=== PATIENT | male | born 1990 | race Caucasian/White ===

== ENCOUNTER 2018-04-23 09:14 | Emergency (ER) | payer SELFPAY ==
--- NOTE | 2018-04-23 10:34 | EDPHY ---
General Time Seen by Provider: 04/23/18 10:27 Narrative: CHIEF COMPLAINT: Suicidal, depressed HISTORY OF PRESENT ILLNESS: Patient presents with complaints of feeling depressed and suicidal. He states that he has felt very suicidal over the past week on a daily basis. He has a very flat affect and describes a history of depression with previous suicide attempts. He states previous attempt of hanging at age 17, attempt by overdose at age 21. He has been seen by Psychiatry but not in the past 2 months. Two months ago he chose to stop is Cymbalta because he felt it was not helping him. He will not describe his plan to me but states that he does have intent to harm himself. No other associated complaints or modifying factors. PSYCHIATRIC DIAGNOSES: Depression PRIOR PSYCHIATRIC EVALUATIONS: In previous states M1/DETAINER: Detainer by me at 10:35 a.m. REVIEW OF SYSTEMS: Ten systems reviewed and are negative unless otherwise noted in the HPI EXAMINATION General Appearance: Alert, no distress. Conversing in full sentences. Head: normocephalic, atraumatic Eyes: Pupils equal and round, no conjunctival pallor or injection ENT, Mouth: Mucous membranes moist Neck: Normal inspection, supple, non-tender Respiratory: Lungs are clear to auscultation Cardiovascular: Regular rate and rhythm Gastrointestinal: Abdomen is soft and nontender Back: non-tender, no bony abnormalities Neurological: A&O, nonfocal, normal gait Skin: Warm and dry, no rash. Tattoo of a heart on his chest. Extremities: Nontender, no pedal edema Psychiatric: Depressed mood and flat affect. Admits to suicidal ideation daily. Admits to previous suicide attempt 6 years ago and 7 years ago. DIFFERENTIAL DIAGNOSES: Including but not limited to depression, anxiety, suicidal ideation, dysthymia MDM: 10:20 a.m. Increasing depression with suicidal ideation. The patient is very anergic with flat affect and does admit to feeling suicidal daily. He does not express the plan at this time. He does admit to previous attempts at suicide by pill ingestion and hanging. He has not seen his psychiatrist and nearly 2 months. He stopped his Cymbalta nearly 2 months ago. I placed him on a detained or and we will proceed with medical clearance for evaluation. He is thus far, cooperative. 11:05 a.m. Patient is medically cleared for evaluation at this time. 12:00 p.m. Patient resting comfortably pending his evaluation. 2:20 p.m. Patient has been evaluated by Alba with [facility]. She has discussed the case with Dr. Perez, who recommends the patient be discharged home. She reports that she has discussed his previous alcohol dependency, for which she has been going to rehabilitation for. She reports he is no longer suicidal. She has provided multiple outpatient resources for him. He has contract for safety and is comfortable with discharge home. I do feel this is reasonable for the patient. He will be discharged in stable conditions with outpatient resources and follow up with [facility]. SUPERVISION: This patient was independently evaluated without direct involvement of or examination by the attending physician. - History Smoking Status: Current every day smoker - Objective Vital Signs: Initial Vital Signs Temperature (C) 98.2 F 04/23/18 09:19 Heart Rate 89 04/23/18 09:19 Respiratory Rate 18 04/23/18 09:19 Blood Pressure 133/61 H 04/23/18 09:19 O2 Sat (%) 99 04/23/18 09:19 O2 Delivery Mode Room Air Allergies/Adverse Reactions: No Known Allergies Allergy (Verified 04/23/18 10:22) Home Medications: Medication Instructions Recorded Cymbalta 04/23/18 Gabapentin 04/23/18 Ibuprofen 04/23/18 oxyCODONE CR 04/23/18 traMADol 04/23/18 Laboratory Results: Laboratory Results 04/23/18 10:00 04/23/18 10:00 04/23/18 04/23/18 04/23/18 10:00 10:00 09:45 WBC 6.53 10^3/uL 10^3/uL (3.80-9.50) RBC 5.16 10^6/uL 10^6/uL (4.40-6.38) Hgb 15.1 g/dL g/dL (13.7-17.5) Hct 44.2 % % (40.0-51.0) MCV 85.7 fL fL (81.5-99.8) MCH 29.3 pg pg (27.9-34.1) MCHC 34.2 g/dL g/dL (32.4-36.7) RDW 12.2 % % (11.5-15.2) Plt Count 248 10^3/uL 10^3/uL (150-400) MPV 9.9 fL fL (8.7-11.7) Neut % (Auto) 49.9 % % (39.3-74.2) Lymph % (Auto) 37.7 % % (15.0-45.0) [place] % (Auto) 7.7 % % (4.5-13.0) Eos % (Auto) 3.8 % % (0.6-7.6) Baso % (Auto) 0.6 % % (0.3-1.7) Nucleat RBC Rel Count 0.0 % % (0.0-0.2) Absolute Neuts (auto) 3.26 10^3/uL 10^3/uL (1.70-6.50) Absolute Lymphs (auto) 2.46 10^3/uL 10^3/uL (1.00-3.00) Absolute Monos (auto) 0.50 10^3/uL 10^3/uL (0.30-0.80) Absolute Eos (auto) 0.25 10^3/uL 10^3/uL (0.03-0.40) Absolute Basos (auto) 0.04 10^3/uL 10^3/uL (0.02-0.10) Absolute Nucleated RBC 0.00 10^3/uL 10^3/uL (0-0.01) Immature Gran % 0.3 % % (0.0-1.1) Immature Gran # 0.02 10^3/uL 10^3/uL (0.00-0.10) Sodium 140 mEq/L mEq/L (135-145) Potassium 4.4 mEq/L mEq/L (3.3-5.0) Chloride 104 mEq/L mEq/L (97-110) Carbon Dioxide 29 mEq/l mEq/l (22-31) Anion Gap 7 mEq/L L mEq/L (8-16) BUN 17 mg/dL mg/dL (7-23) Creatinine 0.8 mg/dL mg/dL (0.7-1.3) Estimated GFR > 60 Glucose 112 mg/dL H mg/dL (70-100) Calcium 9.4 mg/dL mg/dL (8.5-10.4) Salicylates < 1.0 mg/dL L mg/dL (2.0-20.0) Urine Opiates Screen NEGATIVE (NEGATIVE) Acetaminophen < 10 mcg/mL L mcg/mL (10-30) Urine Barbiturates NEGATIVE (NEGATIVE) Ur Phencyclidine Scrn NEGATIVE (NEGATIVE) Ur Amphetamine Screen NEGATIVE (NEGATIVE) U Benzodiazepines Scrn NEGATIVE (NEGATIVE) Urine Cocaine Screen NEGATIVE (NEGATIVE) U Marijuana (THC) Screen NON-NEGATIVE H (NEGATIVE) Ethyl Alcohol < 10 mg/dL mg/dL (0-10) Departure - Departure Disposition: Home, Routine, Self-Care Clinical Impression: Severe major depression Condition: Good Instructions: Depression (ED) Additional Instructions: 1. Contact [facility] for outpatient care 2. Contact Dr. King for outpatient care 3. Contact [place] to follow up with her established physician 4. Contact [facility] or return here for any thoughts of self-harm or harm towards others Referrals: [facility] ,. [Edm Groups for Call Sched] - As per Instructions Katie King MD [Medical Doctor] - As per Instructions [facility],. [Clinic] - As per Instructions
[2018-04-23 10:39] LABS: PLATELET COUNT 248 10^3/uL (150-400)
[2018-04-23 14:41] VITALS: BP 125/77
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
--- NOTE | 2018-04-23 15:12 | ASMTTCLDSP ---
[facility] Discharge Disposition Disposition: Answers: Discharge If Answers: Yes DISCHARGED: Patient/family given suicide hotline info & SAMHSA brochure? Disposition Notes: Notes: Pt was given resources to P adn encouraged to follow up. Pt was also given list of AA meetings in [facility] and pt's request. Discharge Concerns/Recommendations: Notes: In consultation with [facility] ED physician, Fer Pisano MD, and on-call psychiatrist, Joshua Weir MD, both concurred that pt does not appear to meet 27-65 criteria requiring psychiatric hospitalization as pt does not appear to be an imminent risk of harm to self/others/gravely disabled due to a mental illness condition. Date Signed: 04/23/2018 03:11 PM Electronically Signed By:Alba Bernardo
== END 2018-04-23 14:53 | disposition home or self-care (01) ==
DX: R45.851 Suicidal ideations (principal); F34.1 Dysthymic disorder; F17.200 Nicotine dependence, unspecified, uncomplicated
CPT/HCPCS: 80305; G0480

== ENCOUNTER 2018-06-06 11:05 | Emergency (ER) | payer MEDICAID, OTHER ==
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
[2018-06-06 12:40] VITALS: BP 131/72
== END 2018-06-06 12:32 | disposition home or self-care (01) ==
DX: S49.91XA Unspecified injury of right shoulder and upper arm, initial encounter (principal); V18.0XXA Pedal cycle driver injured in noncollision transport accident in nontraffic accident, initial encounter; Y93.55 Activity, bike riding; Y92.9 Unspecified place or not applicable; Y99.9 Unspecified external cause status
CPT/HCPCS: A4565

== ENCOUNTER 2018-06-18 12:54 | Emergency (ER) | payer MEDICAID, OTHER ==
--- NOTE | 2018-06-18 12:57 | EDPHY ---
H & P Time Seen by Provider: 06/18/18 12:55 HPI/ROS: CHIEF COMPLAINT: Chronic cervical pain HISTORY OF PRESENT ILLNESS: The patient presents to the ED with complaints of chronic cervical and thoracic pain following a work related accident which reportedly occurred in September. The patient has been evaluated by Neurosurgery. He reportedly had an unremarkable cervical spine MRI. The patient did have a mechanical fall several weeks ago which resulted in a right shoulder strain. The patient denies any bowel or bladder dysfunction. He denies any additional acute complaints. He is frustrated as he does not yet have a working diagnosis. Patient is requesting a new referral for a specialist physicians. REVIEW OF SYSTEMS: A comprehensive 10 point review of systems is otherwise negative aside from elements mentioned in the history of present illness. Source: Patient Exam Limitations: No limitations - Medical/Surgical History Hx Asthma: No Hx Chronic Respiratory Disease: No Hx Diabetes: No Hx Cardiac Disease: No Hx Renal Disease: No Hx Cirrhosis: No Hx Alcoholism: No Hx HIV/AIDS: No Hx Splenectomy or Spleen Trauma: No Other PMH: T 8 compression fx - Social History Smoking Status: Current every day smoker - Physical Exam Exam: General Appearance: Alert, no distress Eyes: Pupils equal and round no pallor or injection ENT, Mouth: Mucous membranes moist Respiratory: No respiratory distress Neurological: Grossly normal motor exam Skin: Warm and dry, no rashes Musculoskeletal: Tenderness to palpation in the right trapezius muscle Extremities: symmetrical, full range of motion Constitutional: Initial Vital Signs Temperature (C) 36.7 C 06/18/18 12:58 Heart Rate 62 06/18/18 12:58 Respiratory Rate 18 06/18/18 12:58 Blood Pressure 159/66 H 06/18/18 12:58 O2 Sat (%) 96 06/18/18 12:58 O2 Delivery Mode Room Air Allergies/Adverse Reactions: No Known Allergies Allergy (Verified 06/18/18 12:56) Home Medications: Medication Instructions Recorded Gabapentin 04/23/18 Ibuprofen 04/23/18 oxyCODONE CR 04/23/18 traMADol 04/23/18 DULoxetine 06/18/18 Medical Decision Making ED Course/Re-evaluation: I reviewed the patient's past medical records including an MRI obtained in March of this year which demonstrated: FINDINGS: Alignment: Vertebral body height and alignment are maintained. Marrow signal: No marrow signal abnormality. Spinal cord: No cord signal abnormality. Intervertebral discs: Normal disc height and signal. Findings by level as follows: C2-C3: No spinal stenosis or foraminal impingement. C3-C4: No spinal stenosis or foraminal impingement. C4-C5: No spinal stenosis or foraminal impingement. C5-C6: No spinal stenosis or foraminal impingement. C6-C7: No spinal stenosis or foraminal impingement. C7-T1: No spinal stenosis or foraminal impingement. The patient has chronic neck pain. He has been referred to a new specialist physicians per his request. Departure - Departure Disposition: Home, Routine, Self-Care Clinical Impression: Chronic neck pain Condition: Good Instructions: Chronic Neck Pain (DC) Additional Instructions: 1. You have been given the contact information for [facility] if you desire a 2nd opinion regarding your chronic neck pain. 2. Take Ibuprofen or Motrin 600 mg by mouth three times a day. Referrals: Sanjay Frank MD [Medical Doctor] - As per Instructions
[2018-06-18 13:00] VITALS: BP 159/66
--- NOTE | 2018-06-21 11:27 | ASMTCMCOM ---
CM Note CM Note Notes: Late Entry from 06/18/18: Pt presented to the ED for chronic cervical and thoracic spine pain. Requested to speak to patient re:referral to [facility]. This CM faxed over ED Report and referral to Dr Sanjay Frank at [facility]. This CM spoke the pt extensively in the ED waiting area. 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 Pt states he has recently closed the WC case due to frustration and not receiving the evaluation or care he believes he needs. Pt states he has been seen by various providers throughout the past 9 months. Pt continues to have debilitating back and neck pain. 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 We discussed pt establishing a PCP and also seeking a mental health provider for his depression r/t his chronic pain, frustration w/the medical aspect and litigation of his WC case, loss of previous employment, etc. We discussed pt being a good candidate for [facility]. Pt gave permission for this CM to reach out to MAYNOR Burroughs Automatic Presser at the [facility] and request she reach out to patient to schedule a new pt appt. This CM spoke w/Heike and she says she will reach out to the pt. Pt provided information on [facility] and [facility]. Pt states he has no family or close friends in the area. Pt states he doesn't keep in contact with his parents but talks to his older sister in [place] sometimes. Pt very pleasant, appreciative and agreeable to followup plan. Date Signed: 06/21/2018 11:26 AM Electronically Signed By:Sarah Giron RN
== END 2018-06-18 13:45 | disposition home or self-care (01) ==
DX: M54.2 Cervicalgia (principal); G89.29 Other chronic pain

== ENCOUNTER 2018-08-05 09:39 | Emergency (ER) | payer MEDICAID ==
[2018-08-05 09:48] VITALS: BP 154/92
[2018-08-05] MEDS ORDERED: ASPIRIN 81 MG CHEWABLE TAB PO ONE (09:50)
--- NOTE | 2018-08-05 15:37 | CPEKG ---
Test Reason : OPEN Blood Pressure : / mmHG Vent. Rate : 067 BPM Atrial Rate : 068 BPM P-R Int : 161 ms QRS Dur : 096 ms QT Int : 369 ms P-R-T Axes : 061 069 050 degrees QTc Int : [address] elev, probable normal early repol pattern Confirmed by Mariel Zamudio ([id number]) on 08/05/2018 3:37:14 PM Referred By: Confirmed By:Mariel Zamudio
== END 2018-08-05 10:48 | disposition left against medical advice (07) ==
LOC: EDUNIT#
DX: Z53.21 Procedure and treatment not carried out due to patient leaving prior to being seen by health care provider (principal)
CPT/HCPCS: 84484-ER

== ENCOUNTER 2018-09-18 14:30 | Emergency (ER) | payer MEDICAID ==
--- NOTE | 2018-09-18 16:23 | EDPHY ---
General Time Seen by Provider: 09/18/18 15:57 Narrative: CLINICAL IMPRESSION: Chronic back pain ASSESSMENT/PLAN: 27-year-old male with chronic thoracic back pain following a workmen Comp injury in September of 2017. Since that time patient has been on innumerable pain medication, has followed with pain management, has seen Neurosurgery, has had MRIs, and has an upcoming appointment with Natalie Mancilla in 2 days. Patient reports he is currently taking tramadol, Flexeril, and ibuprofen. He states gabapentin and Lyrica "do nothing". Months ago he was on oxycodone and OxyContin but has been off of these for at least 6 months and is not contracted with pain management currently. He denies recent trauma. He is able to move on and off the bed without obvious discomfort. No IV drug abuse. No reported fever. Low clinical suspicion for cauda equina, epidural abscess, meningitis, or acute infectious etiology, or acute neurovascular injury. Patient was given a small amount of Valium to try for muscle relaxant and advised to keep his appointment with Natalie Mancilla on Sunday. Warning signs return to ED sooner alignment discharge. DIFFERENTIAL DX: Differential diagnosis includes but not limited to muscular pain, herniated disc , spine fracture, cauda equina, epidural abscess, infectious causes, intra- abdominal causes, pyelonephritis and urinary tract infection CHIEF COMPLAINT: Chronic back pain HPI: 27-year-old male with history of chronic back and neck pain presents to the emergency department with complaints of back and neck pain. No recent trauma or injury. Patient has had innumerable specialty workups including MRI scans x- rays, has worked with pain management in the past but is not currently contract with pain management, and apparently has tried a multitude of different medications. He is currently taking ibuprofen, tramadol, Flexeril and states "they do nothing". He is currently on Medicaid and states they do not pay for medical massage. He denies fever, chills, chest pain, shortness of breath, IV drug abuse, numbness to the arms or chest wall, difficulty walking, bowel or bladder incontinence, and saddle anesthesia. PAST MEDICAL HISTORY: Chronic back pain See triage summary and nurse notes for addition applicable history Pertinent Past Surgical History: Appendectomy Family History: Noncontributory Social History: Reports he is not abuse IV drugs for 5 years REVIEW OF SYSTEMS: A full 10 point review of systems was negative except for those mentioned in HPI. PHYSICAL EXAM: General Appearance: Alert, oriented, appropriate, cooperative, NAD, well hydrated, non-toxic appearing, VSS, laying comfortably on the bed, able to sit up and stand without discomfort, ambulates without assistance. no hypoxia. Neck: Supple, nontender, no lymphadenopathy, no midline pain, FROM, no meningismus. Respiratory: There are no retractions, lungs are clear to auscultation. No chest wall or rib pain Cardiac: Regular rate and rhythm, no murmurs or gallops. Musculoskeletal: No reproducible midline or paraspinal thoracic back pain. Patient does not appear uncomfortable with palpation. Gastrointestinal: Abdomen is soft, nontender, bowel sounds normal, no masses/ hernia, no rigidity, guarding or focal peritoneal findings. Skin: Warm, dry, no rashes, no nodules on palpation. MEDICAL DECISION MAKING: Patient was seen independently. Secondary supervising physician at time of evaluation was: Dr Tiwari . Diagnosis: Acute on chronic back pain. New, requires workup Summary: See Assessment and Plan for summary of ED visit Patient Progress: Stable for discharge. - History Smoking Status: Current every day smoker - Objective Vital Signs: Initial Vital Signs Temperature (C) 36.8 C 09/18/18 14:40 Heart Rate 94 09/18/18 14:40 Respiratory Rate 16 09/18/18 14:40 Blood Pressure 139/79 H 09/18/18 14:40 O2 Sat (%) 96 09/18/18 14:40 O2 Delivery Mode Room Air Allergies/Adverse Reactions: No Known Allergies Allergy (Verified 09/18/18 14:40) Home Medications: Medication Instructions Recorded Gabapentin 04/23/18 Ibuprofen 04/23/18 oxyCODONE CR 04/23/18 traMADol 04/23/18 DULoxetine 06/18/18 Spironolactone 08/05/18 Diazepam [Valium] 5 mg PO Q8PRN PRN #10 tab 09/18/18 Departure - Departure Disposition: Home, Routine, Self-Care Clinical Impression: Chronic back pain Qualifiers: Back pain location: thoracic back pain Back pain laterality: bilateral Qualified Code(s): M54.6 - Pain in thoracic spine Condition: Fair Instructions: Chronic Back Pain (DC) Additional Instructions: DISCHARGE INSTRUCTIONS FROM YOUR DOCTOR Thank you for visiting our emergency department today. You were treated by a physician automotive parts counter assistant today and your case was reviewed with our ED Attending physician. Please keep in mind that discharge from the emergency department does not mean that there is nothing wrong - it simply means that we have not identified an emergency condition that requires further evaluation or treatment in the hospital. You should always plan to follow up with primary care for re- evaluation of your condition in the next 2-3 days. If you have been referred to a specialist, please call as soon as possible (today or tomorrow) to schedule your follow up appointment at the appropriate time. PLEASE KEEP YOUR APPOINTMENT SUNDAY WITH [facility]. WE DO NOT ROUTINELY PRESCRIBE NARCOTICS FOR CHRONIC PAIN. A SMALL AMOUNT OF VALIUM WAS GIVEN TO TRY FOR MUSCLE SPASMS. CONTINUE HER HOME PAIN MEDICATIONS. CONSIDER RE- ESTABLISHING CARE WITH A DIVORCE ATTORNEY. RETURN TO THE ER FOR NEW OR WORSENING PAIN, FEVER, OR ANY OTHER CONCERN. People present with illnesses and injuries in different ways, and it is always possible that we have missed something. You may always return for re-evaluation if symptoms worsen or if they are not improving or if you develop new/different symptoms. Again, thank you for choosing our emergency department. We hope that you feel better. Referrals: NONE *PRIMARY CARE P,. [Primary Care Provider] - As per Instructions Doron Newsome MD [Medical Doctor] - 1-2 days without fail Prescriptions: Diazepam [Valium] 5 mg PO Q8PRN PRN #10 tab PRN Reason: Pain, Breakthrough
[2018-09-18 16:39] VITALS: BP 133/80
== END 2018-09-18 16:41 | disposition home or self-care (01) ==
DX: M54.6 Pain in thoracic spine (principal); G89.29 Other chronic pain; Z87.828 Personal history of other (healed) physical injury and trauma

== ENCOUNTER 2018-10-27 15:51 | Emergency (ER) | payer MEDICAID ==
[2018-10-27] MEDS ORDERED: IBUPROFEN 600 MG TAB PO ONE (16:36)
--- NOTE | 2018-10-27 16:36 | EDPHY ---
H & P Time Seen by Provider: 10/27/18 16:07 HPI/ROS: HPI Right foot injury. 28-year-old male by private vehicle. This patient was skateboarding. He has a history of a prior right foot mid metatarsal fracture when he was 16. He reports that while skateboarding and doing a maneuver he struck his right foot on a cement wall. He presents the emergency department with complaint of mid dorsal right foot pain. No other injury or complaint. He denies any ankle pain. He did not strike his head. No other extremity pain. ROS: Constitutional: No fever, no chills. No weakness. Musculoskeletal: No back pain. No neck pain. As above. Skin: No rashes. No lacerations or abrasions. Neurological: No headache. No focal weakness or altered sensation. Past medical history: As above. Past history of heroin and cocaine abuse. Multiple orthopedic surgeries. GERD. Appendectomy. Social history: Here by himself. Nonsmoker. Denies alcohol. As above. Physical Exam: General Appearance: Alert, no distress. This patient is responding to questions appropriately and in full sentences. This patient appears well- hydrated and well-nourished. Eyes: Pupils equal and round no pallor or injection. No lid edema, erythema or injection. Right foot and ankle exam: Significant for tenderness on palpation did metatarsals 2 and 3. No bony step-off or deformity noted on palpation of this area. The bony aspects of the ankle are nontender on palpation. There is no significant swelling, edema, erythema, warmth or ecchymosis noted on gross inspection of his foot and ankle. No gross deformity appreciated. The proximal fibula is nontender on palpation. The right lower extremity right foot are neurovascularly intact. Neurological: Motor sensory function is grossly intact. Cranial nerves are normal. Gait is normal. Skin: Warm and dry, no rashes. Musculoskeletal: Neck is supple and nontender. Extremities are symmetrical. All joints range without pain or impingement. Psychiatric: No agitation. No depression. Database: EKG: Imaging: Right foot x-ray series: Negative for fracture, subluxation, dislocation or other abnormality. Interpreted by me. Procedures: Emergency department course: Triage vital signs reviewed and are normal. The patient will be given 600 mg of ibuprofen. X-rays to be obtained as above. 5:00 p.m., the patient was re-evaluated, results of his x-ray was discussed with him. No bony abnormality. The patient will be fitted with a rigid postop shoe and given crutches as needed. I advised weight-bearing as tolerated and ibuprofen. I advised to follow up with his primary care physician or podiatry for re-evaluation in 2-3 days. He feels comfortable with this plan. Return to emergency department precautions were reviewed with him. All of his questions were answered. He was discharged from the emergency department in good condition. Differential Diagnosis: The differential diagnosis on this patient includes but is not limited to right foot sprain. Fracture, subluxation, dislocation involving the right foot unlikely. Other significant traumatic injury unlikely. This represents a partial list of diagnoses considered. These considerations are based on history , physical exam, past history, reassessment and diagnostic testing. Smoking Status: Current every day smoker Constitutional: Initial Vital Signs Temperature (C) 36.3 C 10/27/18 16:02 Heart Rate 83 10/27/18 16:02 Respiratory Rate 17 10/27/18 16:02 Blood Pressure 120/76 10/27/18 16:02 O2 Sat (%) 91 L 10/27/18 16:02 O2 Delivery Mode Room Air Allergies/Adverse Reactions: No Known Allergies Allergy (Verified 10/27/18 16:01) Home Medications: Medication Instructions Recorded Gabapentin 04/23/18 Ibuprofen 04/23/18 oxyCODONE CR 04/23/18 traMADol 04/23/18 DULoxetine 06/18/18 Spironolactone 08/05/18 Diazepam [Valium] 5 mg PO Q8PRN PRN #10 tab 09/18/18 Medical Decision Making - Diagnostics Imaging Results: Imaging Impressions Foot X-Ray 10/27/18 16:27 Impression: Negative right foot radiographs. Departure - Departure Disposition: Home, Routine, Self-Care Clinical Impression: Right foot injury Condition: Good Instructions: Foot Sprain (ED) Additional Instructions: Read and follow provided instructions. Follow-up with your primary care physician or podiatry in 2-3 days for re- evaluation as needed. Ibuprofen dosin mg every 6 hours with meals for the next 3 days only. Take only as needed for pain. Weightbear on your right foot as tolerated. Return to the emergency department for worsening pain, swelling, discoloration, loss of sensation or other serious concerns. Referrals: Mary Salcedo PA [Primary Care Provider] - As per Instructions Maximo Fang DPM [Doctor of Podiatric Medicine] - As per Instructions
[2018-10-27 17:27] VITALS: BP 120/71
== END 2018-10-27 17:25 | disposition home or self-care (01) ==
DX: S92.901A Unspecified fracture of right foot, initial encounter for closed fracture (principal); W22.8XXA Striking against or struck by other objects, initial encounter; Y93.51 Activity, roller skating (inline) and skateboarding; Y92.9 Unspecified place or not applicable; Y99.9 Unspecified external cause status

== ENCOUNTER 2018-12-04 10:51 | Emergency (ER) | payer MEDICAID ==
[2018-12-04 11:06] VITALS: BP 106/77
--- NOTE | 2018-12-04 11:24 | EDPHY ---
H & P Time Seen by Provider: 12/04/18 11:17 HPI/ROS: CHIEF COMPLAINT: Back pain HISTORY OF PRESENT ILLNESS: Patient is a 28-year-old male with ongoing back pain to his right posterior shoulder. Patient states he injured himself approximately a year ago while removing a [place] in December. Patient has been seen by his primary care physician for this in the past. He is currently not taking any narcotic pain medication. His pain flared up today. He called his primary care physician told come to the emergency department for an updated x- ray as well as a trigger point injection with lidocaine. Patient states he has had trigger point injections in the past. They have had variable efficacy. No weakness or numbness. No chest pain or shortness of breath. REVIEW OF SYSTEMS: 10 systems were reveiwed and are negative with the exception of the elements mentioned in the history of present illness. Past Medical/Surgical History: Includes T8 compression fracture, GERD, appendectomy Social history: The patient has a history of IV drug use in the past. No use for the past 5 years. Smoking Status: Current every day smoker Physical Exam: Vitals noted General Appearance: Alert and no distress. Head: Pupils equal. Normal. Respiratory: No respiratory distress. Back: The patient has mild tenderness palpation in the medial aspect of his right scapula. There is mild muscular spasm. Neurovascular intact distally. Cardiac: regular rate and rhythm. Extremities: Full range of motion, normal appearing. Skin: No rashes or lesions. Neuro: Alert. Normal mood and affect. Constitutional: Initial Vital Signs Temperature (C) 37.1 C 12/04/18 11:04 Heart Rate 66 12/04/18 11:04 Respiratory Rate 16 12/04/18 11:04 Blood Pressure 106/77 12/04/18 11:04 O2 Sat (%) 97 12/04/18 11:04 Allergies/Adverse Reactions: No Known Allergies Allergy (Verified 10/27/18 16:01) Home Medications: Medication Instructions Recorded Gabapentin 04/23/18 Ibuprofen 04/23/18 oxyCODONE CR 04/23/18 traMADol 04/23/18 DULoxetine 06/18/18 Spironolactone 08/05/18 Diazepam [Valium] 5 mg PO Q8PRN PRN #10 tab 09/18/18 Medical Decision Making - Diagnostics Imaging Results: Imaging Impressions Shoulder X-Ray 12/04/18 11:56 Impression: Normal. No fracture or arthropathy. ED Course/Re-evaluation: In the emergency department I discussed possible etiologies with the patient. Answered all his questions. Patient consented x-ray imaging and trigger point injection. Procedure: Trigger point injection for shoulder pain Indication: Shoulder pain Patient was injected with bupivacaine 1% into the area of discomfort. A total of 4 cc were injected. Patient tolerated the procedure well. No complications. Shoulder x-ray: No acute disease noted. 1221: I went to discuss the results with the patient. He was not in the room. The gown was on the bed. Patient could not be found. Differential Diagnosis: My differential includes but is not limited to shoulder pain, muscle strain, pleurisy, disc disease Departure - Departure Disposition: Home, Routine, Self-Care Clinical Impression: Shoulder pain, acute Qualifiers: Laterality: right Qualified Code(s): M25.511 - Pain in right shoulder Condition: Good Instructions: Shoulder Pain (ED) Additional Instructions: Return with increasing pain, weakness, numbness or any other concerns. Referrals: ANGELICA FOSTER [Other] - 2-3 days without fail
== END 2018-12-04 12:20 | disposition home or self-care (01) ==
PROC: 3E023BZ Introduction of Anesthetic Agent into Muscle, Percutaneous Approach (ICD-10-PCS; principal; 2018-12-04)
DX: M25.511 Pain in right shoulder (principal)

== ENCOUNTER 2018-12-11 08:20 | Emergency (ER) | payer MEDICAID ==
--- NOTE | 2018-12-11 08:43 | EDPHY ---
H & P Time Seen by Provider: 12/11/18 08:39 HPI/ROS: Chief complaint. Back pain HPI. Patient is 28-year-old male with chronic right upper back pain for approximately 1 year. He has had an MRI multiple times but an MRI 2 days ago which shore a showed a torn tendon and muscle in the right upper back. No new or different pain. He was seen December 04 for ongoing back pain and received a trigger point injection. He does not wish the trigger point injection today. Patient has tried physical therapy multiple medication combinations. The 1 thing that he does seem to have improvement with is Valium especially accompanied with PT. There has been no recent injury. No new or different change in his back pain. No shortness of breath or chest discomfort. Increased pain with range of motion. ROS 10 systems were reviewed and negative with the exception of the elements mentioned in the history of present illness Past Medical/Surgical History: T8 compression fracture, GERD, appendectomy, history IVDA, chronic right upper back pain Social History: Single, daily smoker, no alcohol Smoking Status: Current every day smoker Physical Exam: General Appearance: Alert pleasant well-developed male mild distress. Vital signs are stable Eyes: Pupils equal and round no pallor or injection. ENT, Mouth: Mucous membranes are moist. Respiratory: There are no retractions, lungs are clear to auscultation. Cardiovascular: Regular rate and rhythm. Gastrointestinal: Abdomen is soft and nontender, no masses, bowel sounds normal. Neurological: Awake and alert, sensory and motor exams grossly normal. Skin: Warm and dry, no rashes. Musculoskeletal: Neck is supple nontender. Tenderness to palpation medial aspect of the right scapula area between the scapula and the T-spine. No tenderness over the scapula or over the T-spine. Soft tissue tenderness to palpation Extremities symmetrical, full range of motion. Psychiatric: Patient is oriented X 3, there is no agitation. Constitutional: Initial Vital Signs Temperature (C) 36.6 C 12/11/18 08:21 Heart Rate 68 12/11/18 08:21 Respiratory Rate 16 12/11/18 08:21 Blood Pressure 130/69 H 12/11/18 08:21 O2 Sat (%) 97 12/11/18 08:21 O2 Delivery Mode Room Air Allergies/Adverse Reactions: No Known Allergies Allergy (Verified 10/27/18 16:01) Home Medications: Medication Instructions Recorded Spironolactone 08/05/18 Diazepam [Valium] 5 mg PO Q6PRN PRN #10 tab 12/11/18 Percocet 5-325 mg Tablet 12/11/18 Medical Decision Making Procedures: Query to PERCUSSION TEACHER aware. Patient received oxycodone tabs two on 12/09. Previous prescription for was for diazepam in August 2018 ED Course/Re-evaluation: Patient and I discussed treatment plan including criteria for return importance of follow-up and further evaluation. He expresses understanding and Differential Diagnosis: Chronic pain that it appears to be muscular. MRI 2 days ago apparently shows torn tendon and muscle. Departure - Departure Disposition: Home, Routine, Self-Care Clinical Impression: Chronic back pain greater than 3 months duration Condition: Good Instructions: Back Pain (ED) Additional Instructions: Valium as needed for discomfort and spasm Return for worsening symptoms Follow-up with [facility] Referrals: [facility],. [Primary Care Provider] - As per Instructions [facility] [Provider Group] - As per Instructions Prescriptions: Diazepam [Valium] 5 mg PO Q6PRN PRN #10 tab PRN Reason: For Muscle Spasms
[2018-12-11 09:28] VITALS: BP 122/69
== END 2018-12-11 09:11 | disposition home or self-care (01) ==
DX: M54.6 Pain in thoracic spine (principal); G89.29 Other chronic pain

== ENCOUNTER 2018-12-11 10:04 | Emergency (ER) | payer MEDICAID ==
--- NOTE | 2018-12-11 10:26 | EDPHY ---
H & P Stated Complaint: Wants a Mental Health Eval. Source: Patient, Old records Exam Limitations: No limitations - Personal History Current Tetanus Diphtheria and Acellular Pertussis (TDAP): Unsure - Medical/Surgical History Hx Asthma: No Hx Chronic Respiratory Disease: No Hx Diabetes: No Hx Cardiac Disease: No Hx Renal Disease: No Hx Cirrhosis: No Hx Alcoholism: No Hx HIV/AIDS: No Hx Splenectomy or Spleen Trauma: No Other PMH: T 8 compression fx, GERD, appy 4 years ago. past history of IV drug use, no heroin or cocaine in 5 years. compound fx r foot age 16y - Social History Smoking Status: Current every day smoker Time Seen by Provider: 12/11/18 10:26 HPI/ROS: HPI: This is a 28-year-old male who presents with Chief Complaint: Depression and transgender issues Location: Psychiatric Quality: Depression and transgender issues Duration: Unknown Signs and Symptoms: Timing: Chronic Severity: Moderate Context: Patient has a history of major depression, transgender issues, noncompliance with outpatient counseling and support groups presents with complaints of crying when going out on her for state and feeling depressed when he "sees a pretty girl that he thinks he looks light pink but knows he physically does not fit that same picture." Patient reports that he is employed and goes to work but then sleeps for 14 hr during the day. He has not been attending transgender support groups or parties like he has in the past. He reports that he felt happy when he was "around people that are like him." Patient has been evaluated at [facility] but has not consistently followed up. Has a history of T8 compression fracture that is followed by [facility] and has had a referral to pain management for chronic shoulder pain. History of 2 prior suicide attempts. When patient was 21 years old he overdose on pills and drink alcohol. He reports he was never hospitalized for this attempt. He also attempted to hang himself at age 16 when he grabbed onto his graduate was going up any stated his head got stuck. Some nearby neighbors came and helped him get down. He does have prior hospitalizations for psychiatric issues. Denies wanting to cause physical harm to others. Reports that he has "intense emotional pain." Modifying Factors: Does not take any regular psychiatric medications Comment: ROS: A comprehensive 10 system review of systems is otherwise negative aside from elements mentioned in the history of present illness. MEDICAL/SURGICAL/SOCIAL HISTORY: Medical history: T 8 compression fx, GERD, past history of IV drug use, no heroin or cocaine in 5 years, compound fx right foot age 16y Surgical history: Appendectomy, Social history: Employed. Current every day tobacco user. Originally from [place], [place]. Family support. Family history noncontributory. CONSTITUTIONAL: Tidy, cooperative, adult white male, awake and alert, no obvious distress HEENT: Atraumatic and normocephalic, PERRL, EOMI. Nares patent; no rhinorrhea; no nasal mucosal edema. Tympanic membranes clear. Oropharynx clear, no exudate and moist pink mucosa. Airway patent. No lymphadenopathy. No meningismus. Cardiovascular: Normal S1/S2, regular rate, regular rhythm, without murmur rub or gallop. PULMONARY/CHEST: Symmetrical and nontender. Clear to auscultation bilaterally. Good air movement. No accessory muscle usage. ABDOMEN: Soft, nondistended, nontender, no rebound, no guarding, no peritoneal signs, no masses or organomegaly. No CVAT. EXTREMITIES: 2/2 pulses, strength 5/5, no deformities, no clubbing, no cyanosis or edema. NEUROLOGICAL: no focal neuro deficits. GCS 15. SKIN: Warm and dry, no erythema. no rash. Good capillary refill. PSYCH: Good eye contact, euthymic, no flight of ideas, organized thought process, good insight and judgment, no auditory hallucinations, no visual hallucinations, no suicidal ideation with a plan, no homicidal ideation, no paranoia ([place]) Constitutional: Initial Vital Signs Temperature (C) 36.5 C 12/11/18 10:04 Heart Rate 69 12/11/18 10:04 Respiratory Rate 16 12/11/18 10:04 Blood Pressure 133/80 H 12/11/18 10:04 O2 Sat (%) 97 12/11/18 10:04 O2 Delivery Mode Room Air Allergies/Adverse Reactions: No Known Allergies Allergy (Verified 10/27/18 16:01) Home Medications: Medication Instructions Recorded Spironolactone 08/05/18 Diazepam [Valium] 5 mg PO Q6PRN PRN #10 tab 12/11/18 Percocet 5-325 mg Tablet 12/11/18 Medical Decision Making ED Course/Re-evaluation: Vital signs reviewed and stable upon arrival. Patient checked in earlier this morning originally for back pain/shoulder pain that is chronic in nature and followed [facility] and then re-checked into the emergency room for depression, transgender issues and lack of support. Patient endorses that he has had suicidal ideation with attempts when he was 16 and 21 in the past but is not actively suicidal at this time. Patient was evaluated in April [address] Weir for similar symptoms and was recommended for outpatient counseling. estimation manager consult and patient was directed immediately over to the Crisis Center and [facility]. Patient has been noncompliant following up outpatient. At this time, patient does not meet M1 hold criteria. This patient was seen under the supervision of my secondary supervising physician. I evaluated and cared for this patient with attending. (Kristina Davis) I did not see this patient while he was in the emergency department. However his care was discussed with the PA while the patient was in the department. I agree with treatment plan and management (Maximo Ac) Differential Diagnosis: Differential diagnosis includes but is not limited to major depression, anxiety disorder, schizophrenia, bipolar disorder, intoxicant use, suicidal ideation, psychosis, abhijit. (Kristina Davis) Departure - Departure Disposition: Home, Routine, Self-Care Clinical Impression: Transgender Depression, major Qualifiers: Major depression recurrence: recurrent Active/Remission status: currently active Major depression episode severity: mild Qualified Code(s): F33.0 - Major depressive disorder, recurrent, mild Condition: Good Instructions: Depression (ED), Gender Identity in Your Adolescent (DC) Additional Instructions: Call 911 if you have thoughts of hurting or killing yourself or anyone else, or have any new or worsening symptoms that concern you. Referrals: ANGELICA FOSTER [Other] - As per Instructions [facility] [Outside] - As per Instructions
[2018-12-11 11:03] VITALS: BP 135/74
--- NOTE | 2018-12-11 12:39 | ASMTCMCOM ---
CM Note CM Note Notes: Case Management asked to meet with patient regarding patient request for mental health services. Chart reviewed and multiple ER visits noted including previous referrals to [facility] and [facility]. This CM met with patient and discussed current situation and plans for follow up care. Patient admits that her has been to [facility] in the past to establish care but was upset when he went back and discovered his therapist was no longer workig there. Currently, patient denies any SI/HI but tell sme that he would like to talk to someone and get reconnected with a therapist. I have provided patient with contact information for the [facility] crisis center and [facility] and have strongly encouraged patient to follow up jayne. i have explained the process of calling to scedule an appointment for intake and/or resuming care at the clinic, as well as the 12/02 availability of the crisis center. Patient verbalizes understanding and assures CM that he will follow up today. I have contacted Oneal at the crisis center to let her know that patient may be coming over from the ER as patient states that this is his plan. Date Signed: 12/11/2018 12:38 PM Electronically Signed By:Maria Luisa Lopez RN
== END 2018-12-11 11:02 | disposition home or self-care (01) ==
DX: F64.0 Transsexualism (principal); F33.0 Major depressive disorder, recurrent, mild